=== PATIENT | female | born 1935 | race Caucasian/White ===

== ENCOUNTER 2016-07-12 13:21 | Emergency (ER) | payer MEDICARE, BC ==
--- NOTE | 2016-07-12 14:53 | RAD ---
Indication: Fall, head injury. CT of the head was performed without IV contrast. No prior study is available for comparison. Ventricular structures are midline. No midline shift is noted. The extra-axial spaces are unremarkable. There is no evidence of intracranial mass or hemorrhage. No other high or low density lesions are identified. Mastoid air cells and paranasal sinuses are otherwise unremarkable. There is hyperdensity in the right globe which is also enlarged and may represent hemorrhage. Clinical correlation is suggested. IMPRESSION: No intracranial mass or hemorrhage is noted. The right globe is enlarged. Increased density is noted in the right globe possibility of hemorrhage should BE considered. Patient did have previous surgery on the right.
--- NOTE | 2016-07-12 14:56 | RAD ---
Indication: Neck injury after fall. CT of the cervical spine was obtained in the axial plane. Sagittal and coronal reconstructed images were obtained. The skull base demonstrates mastoid air cells to be well aerated. No abnormal fluid is noted. No basilar skull fracture is noted. The C1 ring is intact. Degenerative changes of the atlantoaxial joint is noted. At C2-C3 facet arthropathy is noted. No central foraminal stenosis is noted. At C3-C4 facet arthropathy is noted. At C4-C5 grade 1 spondylolisthesis is noted with spondylytic ridge present. Left uncovertebral joint hypertrophy narrows the left foramen. At C5-C6 bilateral uncovertebral joint hypertrophy narrows both foramen. At C6-C7 there is no fracture. Disc space narrowing with dorsal and ventral osteophyte formation is noted. At C7-T1 grade 1 spondylolisthesis is noted. No fracture is identified. The lung apices are grossly unremarkable. IMPRESSION: DEGENERATIVE DISC DISEASE AT C4-C5, C5-C6 AND C6-C7. 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 THERE IS NO FRACTURE NOTED.
--- NOTE | 2016-07-12 15:01 | RAD ---
Indication: Fall, right orbital swelling and injury. CT of the facial bones was obtained in the axial plane. Sagittal and coronal reconstructed images were obtained. The frontal sinuses are clear. No abnormal fluid collections are noted. The right orbit demonstrates swelling of the right eyelid. The right globe is enlarged. The anterior and vitreous chambers demonstrates hyper dense material and the possibility of hemorrhage should BE considered. Clinical correlation is suggested. No evidence of an orbital mass or hemorrhage is noted. The left globe appears to be intact. The nasal arch and nasal spine are intact. The maxilla including the pterygoid plates are unremarkable. Zygomatic arch appears intact. The mandible demonstrates no evidence of fracture. The temporomandibular joints are not dislocated. Degenerative changes of the temporomandibular joints are noted bilaterally. No fracture is noted. IMPRESSION: SOFT TISSUE SWELLING OVER THE RIGHT ORBIT IS NOTED. IN ADDITION THERE IS ENLARGEMENT OF THE RIGHT GLOBE WITH HIGH DENSITY MATERIAL WITHIN THE ANTERIOR CHAMBER WELL IN THE VITREOUS CHAMBER. POSSIBILITY OF HEMORRHAGE BE CONSIDERED. CLINICAL CORRELATION IS SUGGESTED. NO FRACTURE OF THE ORBIT IS NOTED. THE RETROBULBAR ORBIT DEMONSTRATES NO MASS.
[2016-07-12] MEDS ORDERED: Tobramycin 0.3% OPHTH.SOL* 5 ML BOT (regular eye drops) RIGHT EYE ONE (16:55)
--- NOTE | 2016-07-12 17:04 | ED ---
Kale Jenkins Billy, scribed for Emerson Mares MD on 07/12/16 at 1504 . Head Injury - HPI Summary HPI Summary: Patient is an 80 year-old female coming to [facility] for evaluation of a fall earlier today after she tripped on the sidewalk. The fall was witnessed by a bystander across the street, who is here in the ED with the patient at this time. Patient denies any LOC. There is swelling and bruising of the right eye. - History Of Current Complaint Chief Complaint: EDFacialInjury Stated Complaint: FALL Time Seen by Provider: 07/12/16 14:24 Hx Obtained From: Patient Mechanism Of Injury: Fall From A Standing Position Onset/Duration: Started Hours Ago Severity Currently: Moderate Severity Initially: Moderate Pain Intensity: 7 Pain Scale Used: 0-10 Numeric Location: Discrete At: - right periorbital Aggravating Factor(s): Other: - none Alleviating Factor(s): Other: - none Associated Signs And Symptoms: Swelling, Bruising - Allergies/Home Medications Allergies/Adverse Reactions: Allergies Allergy/AdvReac Type Severity Reaction Status Date / Time No Known Allergies Allergy Verified 07/23/15 10:24 PMH/Surg Hx/FS Hx/Imm Hx Musculoskeletal History: Denies: Hx Osteoporosis Sensory History: Reports: Hx Cataracts - LEFT EYE, Hx Contacts or Glasses - GLASSES, Hx Glaucoma Denies: Hx Hearing Aid Opthamlomology History: Reports: Hx Cataracts - LEFT EYE, Hx Contacts or Glasses - GLASSES, Hx Glaucoma - Surgical History Surgery Procedure, Year, and Place: 1967-EYE SURGERY RIGHT. LEFT EYE RETINA-- MD OFFICE Hx Anesthesia Reactions: No Infectious Disease History: Denies: Traveled Outside the [place] in Last 30 Days - Family History Family History: The patient does not know her father or his side of the family. However, she states that she is unaware of any chronic illnesses on her mother' s side of the family. - Social History Alcohol Use: None Substance Use Type: Reports: None Smoking Status (MU): Never Smoked Tobacco Review of Systems Negative: Fever Positive: Edema, Other - pain and swelling around the right eye All Other Systems Reviewed And Are Negative: Yes Physical Exam Triage Information Reviewed: Yes Vital Signs On Initial Exam: Initial Vitals Temp Pulse Resp BP Pulse Ox 97.7 F 86 16 227/113 98 07/12/16 13:31 07/12/16 13:31 07/12/16 13:31 07/12/16 13:31 07/12/16 13:31 Vital Signs Reviewed: Yes Appearance: Positive: Well-Appearing, No Pain Distress Skin: Positive: Warm, Skin Color Reflects Adequate Perfusion, Dry Eyes: Positive: Other: - There is erythema and swelling around the right orbit. The upper and lower eyelids of the right eye are also swollen. The sclera is entirely swollen and injected. There is hyphema in the anterior chamber. The right pupil is nonreactive to light. She can move the eye. ENT: Positive: Normal ENT inspection Neck: Positive: Supple, Nontender Respiratory/Lung Sounds: Positive: Clear to Auscultation, Breath Sounds Present Cardiovascular: Positive: RRR Abdomen Description: Positive: Nontender, Soft Bowel Sounds: Positive: Present Musculoskeletal: Positive: Normal, Strength/ROM Intact Neurological: Positive: Normal, Sensory/Motor Intact, Alert, Oriented to Person Place, Time Psychiatric: Positive: Affect/Mood Appropriate - Nehemiah Coma Scale Coma Scale Total: 15 Diagnostics - Vital Signs Vital Signs Temp Pulse Resp BP Pulse Ox 07/12/16 13:53 81 97 07/12/16 13:51 214/92 07/12/16 13:44 97.7 F 82 18 214/92 96 07/12/16 13:31 97.7 F 86 16 227/113 98 - Laboratory Lab Statement: Any lab studies that have been ordered have been reviewed, and results considered in the medical decision making process. - CT Brain CT Interpretation Completed By: Radiologist - No intracranial mass or hemorrhage is noted. The right globe is enlarged. Increased density is noted in the right globe possibility of hemorrhage should BE considered. Patient did have previous surgery on the right. Cervical spine CT Interpretation Completed By: Radiologist - DEGENERATIVE DISC DISEASE AT C4-C5 , C5-C6 AND C6-C7. 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 THERE IS NO FRACTURE NOTED. Maxillofacial CT Interpretation Completed By: Radiologist - SOFT TISSUE SWELLING OVER THE RIGHT ORBIT IS NOTED. IN ADDITION THERE IS ENLARGEMENT OF THE RIGHT GLOBE WITH HIGH DENSITY MATERIAL WITHIN THE ANTERIOR CHAMBER WELL IN THE VITREOUS CHAMBER. POSSIBILITY OF HEMORRHAGE BE CONSIDERED. CLINICAL CORRELATION IS SUGGESTED. NO FRACTURE OF THE ORBIT IS NOTED. THE RETROBULBAR ORBIT DEMONSTRATES NO MASS. Re-Evaluation - Re-Evaluation First Eval Re-Evaluation Time: 15:06 Comment: Imaging results reviewed with the patient. Patient states that she suffered trauma to the right eye more than 40 years ago and has been blind in the right eye since. Second Eval Re-Evaluation Time: 15:45 Third Eval Re-Evaluation Time: 16:47 Comment: Discussed with the patient the risks and benefits of transferring to [facility] in great detail. The patient ultimately decided that she wants to be discharged home instead. Head Injury Course/Dx Course Of Treatment: NO CRITICAL CARE TIME Assessment/Plan: DR NICOLE'S [facility] CONTACTED,NO LOCAL OPHTHALMOLGY AVAILABLE TODAY. DISCUSSED WITH OPHTHALMOLGY, DR JEFFREY, AND ED, DR LORENZO OF [facility]. BOTH ACCEPT THE PATIENT IN TRANSFER. DISCUSSED RESULTS AND TRANSFER WITH PATIENT. PATIENT DECLINED TRANSFER, WISHES TO F/U LOCALLY WITH DR NICOLE TOMORROW. GLOBE APPEARS INTACT TO EXAM; THERE IS NO EXPULSION OF GLOBE CONTENTS SEEN ON EXAM, NO CT EVIDENCE OF GLOBE RUPTURE. PATIENT STATES SHE HAS NOT SEEN OUT OF THE EYE FOR YEARS AND DECLINES GOING TO [facility]. DISCHARGE HOME STABLE. - Diagnoses Provider Diagnoses: Blunt eye trauma, Subconjunctival hemorrhage of right eye, Hyphema of right eye - Physician Notifications Discussed Care Of Patient With: Dr. Kevin ([facility] ED) at 1615. Dr. Jeffrey ([facility] Ophthalmology) at 1635 Discharge - Discharge Plan Condition: Stable Disposition: HOME Patient Education Materials: Hyphema (ED), Subconjunctival Hemorrhage (ED), Head Injury (ED) Referrals: Cj Nicole MD [Medical Doctor] - Sushma Kang MD [Primary Care Provider] - Additional Instructions: FOLLOW UP WITH YOUR [employer] MACHINE OPERATOR, DR NICOLE, TOMORROW, 07/13/16. USE THE TOBRAMYCIN ANTIBIOTIC EYE DROPS DIRECTED. RETURN TO THE EMERGENCY DEPARTMENT FOR ANY WORSENING OF YOUR CONDITION; PAIN, EYE DRAINAGE OR QUESTIONS OR CONCERNS. The documentation as recorded by the Kale rojo Billy accurately reflects the service I personally performed and the decisions made by me, Emerson Mares MD.
[2016-07-12 17:15] VITALS: BP 202/89
== END 2016-07-12 17:18 | disposition home or self-care (01) ==
LOC: ED 13:21
DX: S05.11XA Contusion of eyeball and orbital tissues, right eye, initial encounter (principal); B30.3 Acute epidemic hemorrhagic conjunctivitis (enteroviral); R60.0 Localized edema; W19.XXXA Unspecified fall, initial encounter; Y93.9 Activity, unspecified; Y92.9 Unspecified place or not applicable
CPT/HCPCS: 70450; 70486; 72125; 99282; A9270-GY

== ENCOUNTER 2019-01-04 16:55 | Emergency (ER) | payer MEDICARE, BC ==
--- NOTE | 2019-01-04 17:01 | ED ---
Adult Trauma - HPI Summary HPI Summary: Pt is an 83 y/o F presenting to the ED brought in by EMS for a fall. She is unsure what she fell on, but she landed on the L side of her face. She is bleeding and bruised, mainly from her glasses pushing into her face. She was able to walk after the accident, and she denies visual changes. She has no use of her R eye at baseline. Her last tetanus shot was about 1.5yrs ago. - History of Current Complaint Stated Complaint: FALL PER EMS Time Seen by Provider: 01/04/19 16:58 Hx Obtained From: Patient Mechanism of Injury: Fall Ambulatory at the Scene: Yes Loss of Consciousness: no loss of consciousness Onset/Duration: Started Hours Ago, Still Present Onset of Pain: Immediate Onset Severity: Moderate Current Severity: Mild Location: Head Aggravating Factor(s): Nothing Alleviating Factor(s): Nothing Associated Signs & Symptoms: Positive: Ecchymosis. Negative: Loss of Consciousness - Allergy/Home Medications Allergies/Adverse Reactions: Allergies Allergy/AdvReac Type Severity Reaction Status Date / Time No Known Allergies Allergy Verified 07/23/15 10:24 Home Medications: Home Medications Acetaminophen [Acetaminophen Extra Strength] 1,000 mg PO TID 01/04/19 [History Confirmed 01/04/19] Cyanocobalamin INJ * [Vitamin B12 INJ *] 1,000 mcg IM MONTHLY 01/04/19 [History Confirmed 01/04/19] Gabapentin CAP(*) [Neurontin 100 mg CAP(*)] 100 mg PO BEDTIME PRN 01/04/19 [ History Confirmed 01/04/19] Ibuprofen TAB* [Advil TAB*] 400 mg PO Q4HR PRN 01/04/19 [History Confirmed 01/04] Lidocaine [Aspercreme] 2 patch TOPICAL DAILY 01/04/19 [History Confirmed ] Magnesium Hydroxide LIQ* [Milk of Magnesia LIQ*] 30 ml PO DAILY PRN 01/04/19 [ History Confirmed 01/04/19] Travoprost Z 0.004% OPHTH (NF) [Travatan Z 0.004% OPTH (NF)] 1 drop LEFT EYE BEDTIME 01/04/19 [History Confirmed 01/04/19] PMH/Surg Hx/FS Hx/Imm Hx Previously Healthy: Yes Endocrine/Hematology History: Denies: Hx Diabetes Cardiovascular History: Reports: Hx Hypertension Musculoskeletal History: Denies: Hx Osteoporosis Sensory History: Reports: Hx Cataracts - LEFT EYE, Hx Contacts or Glasses - GLASSES, Hx Glaucoma Denies: Hx Hearing Aid Opthamlomology History: Reports: Hx Cataracts - LEFT EYE, Hx Contacts or Glasses - GLASSES, Hx Glaucoma - Surgical History Surgery Procedure, Year, and Place: 1967-EYE SURGERY RIGHT. LEFT EYE RETINA-- MD OFFICE Hx Anesthesia Reactions: No - Family History Known Family History: Negative: Hypertension, Diabetes - Social History Lives: [facility] Alcohol Use: None Hx Substance Use: No Substance Use Type: Reports: None Hx Tobacco Use: No Smoking Status (MU): Never Smoked Tobacco Review of Systems Eyes: Negative Negative: Decreased ROM Positive: Bruising All Other Systems Reviewed And Are Negative: Yes Physical Exam - Summary Physical Exam Summary: Constitutional: Well-developed, Well-nourished, Alert. (-) Distressed Skin: Warm, Dry HENT: Normocephalic; Atraumatic Eyes: Conjunctiva normal Neck: Musculoskeletal ROM normal neck. (-) JVD, (-) Stridor, (-) Tracheal deviation Cardio: Rhythm regular, rate normal, Heart sounds normal; Intact distal pulses; Radial pulses are 2+ and symmetric. (-) Murmur Pulmonary/Chest wall: Effort normal. (-) Respiratory distress, (-) Wheezes, (-) Rales Abd: Soft, (-) tenderness, (-) Distension, (-) Guarding, (-) Rebound Musculoskeletal: (-) Edema Lymph: (-) Cervical adenopathy Neuro: Alert, Oriented x3 Psych: Mood and affect Normal GCS: 15 Triage Information Reviewed: Yes Vital Signs Reviewed: Yes Procedures - Sedation Patient Received Moderate/Deep Sedation with Procedure: No Diagnostics - Laboratory Lab Statement: Any lab studies that have been ordered have been reviewed, and results considered in the medical decision making process. - CT Brain CT CT Interpretation Completed By: Radiologist Summary of CT Findings: No acute intracranial abnormality. ED physician has reviewed this report. Maxillofacial CT CT Interpretation Completed By: Radiologist Summary of CT Findings: No acute abnormality. ED physician has reviewed this report. Adult Trauma Course/Dx - Course Course Of Treatment: He is here after a mechanical fall. Patient had trauma to her left eye and mouth. Patient had evidence of ocular entrapment. Patient had a CT of her brain and maxillofacial showed no injury. Patient has no suturable lacerations. Patient is up-to-date on her tetanus. - Diagnoses Provider Diagnoses: Fall, Eye bruise, Intraoral laceration Discharge ED - Sign-Out/Discharge Documenting (check all that apply): Patient Departure - Discharge Plan Condition: Stable Disposition: HOME Patient Education Materials: Fall Prevention for Older Adults (ED) Referrals: Sushma Kang MD [Primary Care Provider] - Additional Instructions: Please take Ibuprofen and Tylenol as needed for your pain. Use ice on your face to reduce the swelling and pain if needed. Return to the emergency department with any new or worsening symptoms, including uncontrollable vomiting, slurred speech, changes in mental status, or one-sided weakness. - Billing Disposition and Condition Condition: STABLE Disposition: Home - Attestation Statements Document Initiated by Jacobibe: Yes Documenting Scribe: Tonja Vázquez Provider For Whom Glene is Documenting (Include Credential): Calderon Townsend MD. Scribe Attestation: Tonja Jenkins, scribed for Calderon Townsend MD. on 01/05/19 at 1005. Scribe Documentation Reviewed: Yes Provider Attestation: The documentation as recorded by the scribTonja knight accurately reflects the service I personally performed and the decisions made by Calderon munguia MD. Status of Scribe Document: Viewed
[2019-01-04 19:13] VITALS: BP 169/93
== END 2019-01-04 19:03 | disposition home or self-care (01) ==
LOC: ED 16:55
DX: S00.12XA Contusion of left eyelid and periocular area, initial encounter (principal); S01.512A Laceration without foreign body of oral cavity, initial encounter; W19.XXXA Unspecified fall, initial encounter; Y92.9 Unspecified place or not applicable; I10 Essential (primary) hypertension; Z79.899 Other long term (current) drug therapy
CPT/HCPCS: 70450; 70486; 99282